=== PATIENT | male | born 1995 ===

== ENCOUNTER 2022-08-05 18:29 | Emergency (ER) | payer MEDICAID, SELFPAY ==
[2022-08-05 18:30] VITALS: BP 126/83; PULSE 74; RESP 18; TEMP 35.9; O2SAT 95
== END 2022-08-05 20:22 ==
LOC: ER 19:14
PROVIDERS: Emergency Provider Physician Assistant
DX: Z53.21 Procedure and treatment not carried out due to patient leaving prior to being seen by health care provider (principal)

== ENCOUNTER 2022-08-05 20:27 | Emergency (ER) | payer MEDICAID, SELFPAY | END 2022-08-05 21:15 | LOC: ER 21:14 | DX: Z53.21 Procedure and treatment not carried out due to patient leaving prior to being seen by health care provider (principal) ==

== ENCOUNTER 2022-08-05 22:04 | Emergency (ER) | payer MEDICAID, SELFPAY ==
--- NOTE | 2022-08-05 22:19 | W.ED.GENAD ---
Discharge Plan Disposition Patient Disposition: [facility] Condition: Stable Discharge Details Clinical Impression: Forehead laceration Primary Care Provider: Unknown,Unknown ED Provider: Kurtis Gleason Discharge Instructions Instructions: Facial Laceration (ED) Additional Instructions: Your laceration was closed with absorbable sutures. There is a layer of tissue adhesive that will slowly wear off over approximately 1 week's time. Sutures should be dissolved approximately in 1 week's time as well. Return if develop a fever, foul-smelling discharge from the wound or any other acute concerns. You are medically stable for transport to correctional facility Medical Decision Making 26-year-old male presents with police. He was here earlier but was agitated with the delay in being seen, vandalized his room and left for evaluation. Now returns for police custody. He suffered a laceration to his forehead. No loss of consciousness. He has not been vomiting. The wound was irrigated, anesthetized, repaired with absorbable Vicryl sutures and covered with tissue adhesive. He is medically stable for discharge to correctional facility. HPI General Mode of arrival: ambulatory. Date/Time Provider Initiated Documentation: 08/05/22 22:17. Limitations to Documentation: no limitations. Information obtained by: patient and police. History of Present Illness 26 year old M presents to the emergency department with the chief complaint of Laceration on forehead, in police custody, described as mild, and is localized to the head and face. Patient reports no radiation. Patient started experiencing this hour(s) and it has been constant. No relieving factors improve symptom(s), No exacerbating factors reported . Patient did receive the following treatments prior to arrival, none General WILBERT: 3 Review of Systems Narrative: Patient not cooperative with history taking [facility] All Active Problems (Updated 08/05/22 @ 22:18 by Kurtis Gleason MD) Forehead laceration (Acute) Social History Smoking/Tobacco Use Status: Unknown Smoking risk assessment performed?: Yes Exam Narrative Exam Narrative: GEN: awake, alert, motor alcohol, well groomed, interactive. HEAD: Normocephalic, horizontally oriented laceration forehead ENT: Mucous membranes moist, oropharynx unremarkable, External ear exam unremarkable EYES: PERRL, EOMI NECK: Full ROM, no HIRAL, no menigismus CHEST/RESP: No respiratory distress EXT: Full ROM, no edema, no rash Neuro: Grossly normal neurologic exam, conversant, interactive. Procedures Laceration Laceration 1: Description: linear Depth: simple, single layer Local Anesthetic: Lidocaine 1% Amount of anesthesia used (mL): 3 Pre-repair: wound explored, irrigated extensively and deep structures intact Skin layer closed with: vicryl Size (cm): 5-0 Number of sutures: 5 Technique: simple, interrupted
== END 2022-08-05 22:29 ==
PROVIDERS: Emergency Provider Emergency Medicine
DX: S01.81XA Laceration without foreign body of other part of head, initial encounter (principal); X58.XXXA Exposure to other specified factors, initial encounter
CPT/HCPCS: 12011